=== PATIENT | male | born 1995 | race Caucasian/White ===

== ENCOUNTER 2019-02-06 07:10 | Day surgery (SDC) | payer OTHER ==
[~2019-02-06] VITALS: Ht 177.8 cm; Wt 84.0 kg
[~2019-02-06 07:10] MED LIST: FENTANYL PF 250 MCG/5ML ONE; LIDOCAINE 1%-EPI 1:100K, 20ML ONE; LIDOCAINE/MPF 2%-EPI 1:200K, 20 ML ONE; MIDAZOLAM 1 MG/ML, 2ML ONE; None at this Time; ROPIvacaine/PF 0.5%, 30 ML ONE
[2019-02-06 07:23] VITALS: BP 133/91
[2019-02-06] MEDS ORDERED: LACTATED RINGERS 1,000 ML IV SCH (07:23)
[2019-02-06] MEDS ORDERED: ACETAMINOPHEN 500 MG TABLET ONE (07:26)
[2019-02-06] MEDS ORDERED: GABAPENTIN 300 MG CAPSULE ONE (07:27)
[2019-02-06] MEDS ORDERED: GABAPENTIN 300 MG CAPSULE PO ONE (07:30)
[2019-02-06] MEDS ORDERED: ACETAMINOPHEN 500 MG TABLET PO ONE (07:30)
[2019-02-06] MEDS ORDERED: MEPERIDINE/PF 100 MG/ML ONE (08:08)
[2019-02-06] MEDS ORDERED: LABETALOL 5MG/ML, 20ML IV PRN (08:30)
[2019-02-06] MEDS ORDERED: ACETAMINOPHEN 325 MG TABLET PO PRN (08:30)
[2019-02-06] MEDS ORDERED: ALBUTEROL SULFATE 2.5 MG/3 ML NPPB PRN (08:30)
[2019-02-06] MEDS ORDERED: HYDROmorphone 2 MG/ML, 1ML IVPush PRN (08:30)
[2019-02-06] MEDS ORDERED: MEPERIDINE/PF 25MG/0.5ML IVPush PRN (08:30)
[2019-02-06] MEDS ORDERED: FENTANYL PF 100 MCG/2ML IV PRN (08:30)
[2019-02-06] MEDS ORDERED: hydrALAzine 20 MG/ML, 1ML IV PRN (08:30)
[2019-02-06] MEDS ORDERED: OXYcodone 5 MG/5 ML ORAL.SOL UDC PO PRN (08:30)
[2019-02-06] MEDS ORDERED: KETOROLAC 30 MG/1 ML IV PRN (08:30)
[2019-02-06] MEDS ORDERED: PROMETHAZINE 25 MG/ML, 1ML IV PRN (08:30)
[2019-02-06] MEDS ORDERED: DIAZEPAM 5 MG/ML, 2ML IVPush PRN (08:30)
[2019-02-06] MEDS ORDERED: DEXAMETHASONE 4 MG/ML, 1ML ONE (09:44)
[2019-02-06] MEDS ORDERED: ROCURONIUM 10MG/ML,5ML ONE (09:44)
[2019-02-06] MEDS ORDERED: SUCCINYLCHOLINE 20 MG/ML, 10ML ONE (09:44)
[2019-02-06] MEDS ORDERED: ONDANSETRON 2MG/ML, 2ML ONE (09:44)
[2019-02-06] MEDS ORDERED: PROPOFOL 10 MG/ML, 20ML ONE (09:44)
[2019-02-06] MEDS ORDERED: GLYCOPYRROLATE 0.2MG/1ML, 5ML ONE (09:44)
[2019-02-06] MEDS ORDERED: NEOSTIGMINE 1 MG/ML, 10ML ONE (09:44)
[2019-02-06] MEDS ORDERED: CEFAZOLIN 1,000 MG ONE (09:44)
[2019-02-06] MEDS ORDERED: KETOROLAC 30 MG/1 ML ONE (10:23)
== END 2019-02-06 12:10 | disposition home or self-care (01) ==
LOC: OUT 07:10
PROVIDERS: ATTEND Orthopaedic Surgery
DX: S83.512A Sprain of anterior cruciate ligament of left knee, initial encounter (principal); S83.272A Complex tear of lateral meniscus, current injury, left knee, initial encounter; S83.242A Other tear of medial meniscus, current injury, left knee, initial encounter; M65.862 Other synovitis and tenosynovitis, left lower leg; M94.262 Chondromalacia, left knee; Z87.891 Personal history of nicotine dependence; Z88.2 Allergy status to sulfonamides; X58.XXXA Exposure to other specified factors, initial encounter; Y93.55 Activity, bike riding; Y92.89 Other specified places as the place of occurrence of the external cause; Y99.8 Other external cause status
CPT/HCPCS: 29881; 29882; 29888; 64445; 64447; 73560; C1713; J0690; J1100; J1885; J2175; J2250; J2405; J2704; J2795; J3010; J3490; J7120; 76000; J2710; J0330